=== PATIENT | male | born 1965 | race African-American/Black ===

== ENCOUNTER → 2016-08-29 | Outpatient (CLI) | payer BC ==
--- NOTE | ~2016-08-29 | TH ---
Unit #: [id number] #: [id number] Patient: JANA HUGHES [id number] [address] [address] [id number] O MR#: [id number] NAME: JANA HUGHES : 1965 SEX: M STUDY DATE/TIME: 08/29/2016 UNIT: [facility] ROOM: STUDY DESCRIPTION: Stress nuclear and ECG Attending Physician: Guille Gunter M.D. Referring Physician: Guille Gunter M.D. Primary Care Physician: Ric Merchant CARDIOLOGY REPORT Result text under stress test. Please see this order for result text. Dictated by... Alexander Silva/ts TD: 08/30/2016 12:39 JOB #: [id number] CARDIOLOGY REPORT Page 1 of 1 X William Fontenot MD CARDIOLOGY REPORT
--- NOTE | ~2016-08-29 | ST ---
Unit #: [id number] #: [id number] Patient: JANA HUGHES [id number] [facility]. [place], [place] [address] [id number] O MR#: [id number] NAME: JANA HUGHES : 1965 SEX: M STUDY DATE/TIME: 08/29/2016 UNIT: CN ROOM: STUDY DESCRIPTION: Stress nuclear and ECG Attending Physician: Guille Gunter M.D. Referring Physician: Guille Gunter M.D. Primary Care Physician: Eduardo Lorenz, [facility] CARDIOLOGY REPORT EXAM Stress nuclear and ECG, combined. INDICATION Tobacco abuse, chest pain, and dyspnea on exertion for the diagnosis of obstructive coronary disease contributing to the patient's dyspnea and chest discomfort, in a patient with an abnormal rest ECG. SUMMARY The patient exercised under Edson protocol to maximal effort. The resting ECG was abnormal with T wave inversion in leads 2, AVF, V5 and V6. With stress there were pseudonormalization of the T wave changes at rest. On the EKG there are no diagnostic ST shifts, no dysrhythmias, no heart block. The patient completed 10 minutes and 6 seconds on a Edson protocol, heart rate increased from 71 to 142 (82% close) and blood pressure increased from 158/108 to 182/103. Technetium 99 Cardiolite 10.78 and 35.8 mCi was given at rest and stress respectively. Appropriate views were obtained. It should be noted that at peak stress, with injection of the 35.8 mCi that some was spilled, due to stopcock malfunction. This area was not deemed to be highly radioactive, thus a very small amount appears to have not entered the heart. Images are adequate for interpretation. Planar images demonstrate no significant patient motion with stress but moderate patient motion at rest. There is no significant lung uptake, LV appears upper limits of normal in size. There is no increased RV size. Summed stress scores is 2, summed difference scores is 1. Gated perfusion wall motion analysis demonstrates normal wall motion throughout the myocardial with suboptimal uptake throughout the myocardium, end-diastolic volume 124 mL, ejection fraction 49%. Perfusion images demonstrate diffuse poor uptake, as noted above, probably related to the infusion amount, but essentially normal perfusion throughout the myocardium. There is chest wall attenuation artifact noted. IMPRESSION 1. Good exercise tolerance. 2. Normal heart rate response. 3. Hypertensin at rest with normal blood pressure response. 4. Abnormal nondiagnostic stress ECG likely related to hypertension. 5. Stress nuclear study shows no ischemia or infarction. 6. Mild LV enlargement with low normal LV function. Unit #: [id number] #: [id number] Patient: JANA HUGHES Dictated by... Alexander Silva/ts TD: 08/30/2016 12:22 JOB #: [id number] CARDIOLOGY REPORT Page 1 of 1 X William Fontenot MD CARDIOLOGY REPORT
== END | disposition home or self-care (01) ==
LOC: CNUC 07:35
DX: R60.0 Localized edema (principal); R06.09 Other forms of dyspnea; I51.7 Cardiomegaly; I36.1 Nonrheumatic tricuspid (valve) insufficiency; R94.39 Abnormal result of other cardiovascular function study
CPT/HCPCS: 78452; 93017; 93306; A9500